=== PATIENT | female | born 1995 | race Caucasian/White ===

== ENCOUNTER 2025-08-17 20:54 | Emergency (ER) | payer SELFPAY ==
[2025-08-17 20:56] VITALS: BP 161/86
--- NOTE | 2025-08-17 21:28 | ED.GENMED ---
History of Present Illness
General
Chief Complaint: Skin Problem
Source: patient
Time Seen by Provider: 08/17/25 21:06
History of Present Illness
History of Present Illness:
29-year-old female presents to the emergency room complaining of pain in her right index finger. Patient states that she felt like she got splinters when she was moving a patient. No other injuries.
Phy Exam
Physical Exam
Physical Exam:
General: Awake, Alert, Oriented X3. No acute distress.
Vitals: unremarkable
Head: Atraumatic
Eyes: Pupils equal, EOMI
Throat: Airway intact, no exudates
Neuro: Nonfocal
Skin: Warm, dry, no rash
Extremities: pulses equal b/l, no edema. 3 very small black foreign bodies noted under the skin just below the nail of the left index finger.
Course
Vital Signs
Initial and Last Documented VS:
Initial Vital Signs
Pulse Resp BP Pulse Ox
82 19 161/86 98
08/17/25 20:56 08/17/25 20:56 08/17/25 20:56 08/17/25 20:56
Last Documented Vital Signs
Pulse Resp BP Pulse Ox
82 19 161/86 98
08/17/25 20:56 08/17/25 20:56 08/17/25 20:56 08/17/25 20:56
MDM/Problems Addressed
MDM/Problems Addressed:
Tiny splinters removed using forceps. Patient feels better. No other intervention necessary.
*Pulse Oximetry
SaO2: 98
Patient hypoxic: no
*Critical Care Note
Total Time (30-74mins, 75-104mins- exclusive of procedures): Not Applicable
ED Attending Note
-
Portions of this chart may have been created with voice recognition software.� Occasional wrong word or��sound alike� substitutions may have occurred due to the inherent limitations of voice recognition software.
Discharge Plan
Departure
Patient Disposition: Home (Routine Discharge)
Date of Disposition: 08/17/25
Time of Disposition: 21:28
Patient with high blood pressure during this ER visit?: No
Condition: Good
Discharge Problem:
Splinter of finger
Instructions: Removing objects stuck in the skin
Prescriptions:
No Action
Tylenol #3: Tablet
1 PO Q6HPRN PRN (Reason: pain)
Patient Comments:
PT instructed to take q 6-8hours; Pt states she has taken 2 in last 2 days. Pt was instructed to take Extra strenth tylenol - one tab - when she takes Tylenol #3.
amoxicillin 500 MG capsule
500 mg PO Q8H
acetaminophen [Tylenol Extra Strength] 500 MG tablet
1 PO Q6HPRN PRN (Reason: pain)
Patient Comments:
Pt instructed to take when she takes Tylenol #3
Interventions
Interventions:
*General Assessment Last Done: 08/17/25 20:57
*Neglect/Abuse Screening Last Done: 08/17/25 20:57
*ED COVID-19 Vaccine History Last Done: 08/17/25 20:57
*ED Influenza Vaccine History Last Done: 08/17/25 20:57
*Risk Screen - Suicide (C-SSRS) Last Done: 08/17/25 20:57
Discharge Date and Time
Print Language: GRENADIAN
[2025-08-17] MEDS: ADACEL 0.5 ML IM (21:46)
== END 2025-08-17 21:50 | disposition home or self-care (01) ==
LOC: EMR 20:54
PROVIDERS: EMERGENCY PHYSICIAN Emergency Medicine
DX: S60.450A Superficial foreign body of right index finger, initial encounter (principal); W45.8XXA Other foreign body or object entering through skin, initial encounter; Z23 Encounter for immunization
CPT/HCPCS: 90471; 99282; 90715